=== PATIENT | male | born 1955 | race Caucasian/White ===

== ENCOUNTER 2019-01-11 09:19 | Day surgery (SDC) | payer OTHER ==
--- NOTE | 2019-01-10 12:34 | EKG ---
Test Date: 2019-01-10 Test Time: 10:24:50 Honing Machine Operator Semiautomatic: TEAGAN MEASUREMENT RESULTS: Intervals: Rate: 69 WA: 192 QRSD: 142 QT: 424 QTc: 454 [employer]: P: 31 WA: 192 QRS: 56 T: 37 INTERPRETIVE STATEMENTS: Normal sinus rhythm Nonspecific intraventricular block Cannot rule out Septal infarct, age undetermined Abnormal ECG No previous ECG available for comparison Electronically Signed On 01-10-19 12:33:42 CDT by Keith Wheat
[~2019-01-11 09:19] MED LIST: FENTANYL CITR 100 MCG/2 ML ONE; LIDOCAINE 1% W/EPI 1:100,000 MDV 20 ML VIAL ONE; LIDOCAINE 2% MPF 5 ML VIAL ONE; MIDAZOLAM HCL 2 MG/2 ML INJ ONE; PROPOFOL 200 MG/20 ML VIAL IV ONE; ROCURONIUM 50 MG/5 ML VIAL IV ONE
[2019-01-11] MEDS ORDERED: NA CHLORIDE 0.9% 1,000 ML ONE ×2 (09:22→10:54)
[2019-01-11] MEDS ORDERED: SUCCINYLCHOLINE 20 MG/ML (10 ML) IV ONE (10:00)
[2019-01-11] MEDS ORDERED: ROCURONIUM 50 MG/5 ML VIAL IV ONE (10:03)
[2019-01-11] MEDS ORDERED: MIDAZOLAM HCL 2 MG/2 ML INJ ONE (10:03)
[2019-01-11] MEDS ORDERED: FENTANYL CITR 100 MCG/2 ML ONE (10:03)
[2019-01-11] MEDS ORDERED: ONDANSETRON 4 MG/2 ML VIAL ONE (10:03)
[2019-01-11] MEDS ORDERED: LIDOCAINE 2% MPF 5 ML VIAL ONE (10:03)
[2019-01-11] MEDS ORDERED: NEOSTIGMINE 1 MG/ML -10 ML VIAL ONE (10:37)
[2019-01-11] MEDS ORDERED: NS 0.9% VIAL 20 ML ONE (10:37)
[2019-01-11] MEDS ORDERED: Mastisol Adhesive Liq ONE (10:45)
[2019-01-11] MEDS ORDERED: GLYCOPYRROLATE 0.2 MG/ML SYR ONE (10:54)
--- NOTE | 2019-01-11 11:07 | P.BOP ---
Preoperative diagnosis: right parotid mass Postoperative diagnosis: same Primary procedure: right partial parotidectomy wo nerve dissection Risk Management Internship: Lucia Antunez Estimated blood loss: <10ml Specimen: R parotid tail mass Findings: about 2cm cystic mass attached to inferior tail of parotid Anesthesia: General Complications: None Implants: none Fluids & blood products: 900ml Transferred to: Recovery Room Condition: Good
[2019-01-11 13:24] VITALS: BP 108/62; TEMP 97.8; O2SAT 94
--- NOTE | 2019-01-12 13:06 | OP ---
Surgeon: Krista Wright MD Preoperative Diagnosis: Right parotid mass. Postoperative Diagnosis: Right parotid mass. Procedure: Right partial parotidectomy without facial nerve dissection. Indication For Procedure: Nikunj Deras was referred to me for a right neck mass. He noted swelling over the right neck for at least 3 months. It was initially treated as acute parotitis and he did h ave foul-tasting drainage through Stensen duct with massage. However, the area of swelling did not r esolve. He underwent fine-needle aspiration, which demonstrated lymphocytes, scant neutrophils, and clusters of oval and spindle cells but overall was nondiagnostic. The patient noted that after fine- needle aspiration the mass completely deflated, but then filled back up again to baseline within a da y. CT of the neck was ordered based on nondiagnostic FNA. CT demonstrated a cystic appearing mass i n the lateral neck with difficulty determining if the mass is attached to the parotid or immediately adjacent as only axial images were available. The risks, benefits, and alternatives to the procedure were discussed with the patient who agreed to proceed. Description Of Procedure: The patient was brought to the operating room. He was placed under genera l anesthesia via oral endotracheal tube. The head of bed was turned approximately [address] exposure of the neck. The patient's head was turned to the left for exposure of the right neck. The area overlying the level of the neck and jawline were shaved using clippers. The mass was noted to be approximately a centimeter through palpation in the skin, slightly smaller than his clinic pre sentation 1 month ago. Due to uncertain diagnosis, the decision was made for a small incision with t he option for extension to a full parotidectomy incision as needed. The area was not injected in ord er to aid in the continued ability to palpate the mass. A 2 cm incision was made through the skin an d subcutaneous tissues. The platysma was divided and the soft tissues were carefully dissected using the [place]. The mass was identified. It was round and the inferior portion dissected easily from u nderlying tissues. The superior attachment point was difficult to appreciate and the incision was ex tended laterally and upward in a curvilinear fashion following a planned parotidectomy like incision. Full extension to the earlobe was not required. After marking the incision, a subplatysmal flap wa s elevated superiorly, inferiorly, and the lateral aspect of the parotid gland was identified. The m ass appeared to be connected to the inferior portion of the parotid. The LigaSure was used to divide the mass with a cuff of normal salivary tissue at the attachment point. The mass was removed and th e surgical bed was thoroughly irrigated. The greater auricular nerve was noted to be intact at the p osterior aspect of the wound bed due to a small degree of dissection. No drain was necessary. The i ncision was then closed in a layered fashion using 4-0 Vicryl and 5-0 fast-absorbing gut. Steri-Stri ps were then applied to the incision and the patient was returned to care of Anesthesia for awakening , extubation in the operating room, which proceeded without difficulty. Complications: None. Disposition: Patient will be discharged home later today and follow up with Dr. Wright in 3 days fo r evaluation of healing and evaluation for candidacy for return to work. CAL/PETRA Voice ID: [id number] Report ID: [id number]
== END 2019-01-11 12:24 | disposition home or self-care (01) ==
LOC: OR 09:19
PROVIDERS: ATTEND Otolaryngology
PROC: 0CB80ZZ Excision of Right Parotid Gland, Open Approach (ICD-10-PCS; principal; 2019-01-11 10:30)
DX: R22.1 Localized swelling, mass and lump, neck (principal); E11.9 Type 2 diabetes mellitus without complications; I10 Essential (primary) hypertension; H04.129 Dry eye syndrome of unspecified lacrimal gland; K21.9 Gastro-esophageal reflux disease without esophagitis; Z80.9 Family history of malignant neoplasm, unspecified
CPT/HCPCS: 93005; 36415; 82962 ×2; 88307; 42410; J2710; J0330; J2250; J3010; J7030 ×2; J2405; 88305; J2704

== ENCOUNTER 2023-04-05 06:23 | Day surgery (SDC) | payer OTHER ==
[2023-04-04 16:09] LABS: Potassium 4.3 mEq/L (3.5-5.1)
[2023-04-05] MEDS ORDERED: NA CHLORIDE 0.9% 1,000 ML ONE (06:40)
[2023-04-05] MEDS ORDERED: propofoL 200 MG/20 ML VIAL IV ONE (07:28)
[2023-04-05] MEDS ORDERED: LIDOCAINE 1% MPF 5 ML VIAL ONE (07:28)
[2023-04-05 10:17] VITALS: O2SAT 100
[2023-04-05 10:50] VITALS: BP 101/72; TEMP 97.8
--- NOTE | 2023-04-06 13:26 | EKG ---
Test Date: 2023-04-04 Test Time: 16:37:33 Aerial Photogrammetrist: RAY MEASUREMENT RESULTS: Intervals: Rate: 65 UT: 176 QRSD: 134 QT: 462 QTc: 480 [place]: P: 23 UT: 176 QRS: 113 T: 57 INTERPRETIVE STATEMENTS: Normal sinus rhythm Nonspecific intraventricular block Lateral infarct, age undetermined Abnormal ECG Compared to ECG 01/10/2019 10:24:50 No significant changes Electronically Signed On 04-06-23 13:22:16 TRANSFER AND PUMPHOUSE OPERATOR by Jose Alejandro Carbajal
--- NOTE | 2023-04-06 13:26 | EKG ---
Test Date: 2023-04-04 Test Time: 16:41:00 Fiber Locking Supervisor: RAY MEASUREMENT RESULTS: Intervals: Rate: 65 ME: 180 QRSD: 138 QT: 454 QTc: 472 [place]: P: 7 ME: 180 QRS: 63 T: 30 INTERPRETIVE STATEMENTS: Normal sinus rhythm Right bundle branch block Abnormal ECG Compared to ECG 04/04/2023 16:37:33 Right bundle-branch block now present Myocardial infarct finding no longer present Electronically Signed On 04-06-23 13:22:15 GUM ROLLING MACHINE OPERATOR by Jose Alejandro Carbajal
== END 2023-04-05 09:05 | disposition home or self-care (01) ==
LOC: OR 06:23
PROVIDERS: ATTEND Surgery
PROC: 0DBN8ZX Excision of Sigmoid Colon, Via Natural or Artificial Opening Endoscopic, Diagnostic (ICD-10-PCS; 2023-04-05)
PROC: 0DBP8ZX Excision of Rectum, Via Natural or Artificial Opening Endoscopic, Diagnostic (ICD-10-PCS; 2023-04-05)
PROC: 0DBC8ZX Excision of Ileocecal Valve, Via Natural or Artificial Opening Endoscopic, Diagnostic (ICD-10-PCS; principal; 2023-04-05 07:30)
DX: R19.5 Other fecal abnormalities (principal); E11.9 Type 2 diabetes mellitus without complications; E78.00 Pure hypercholesterolemia, unspecified; I10 Essential (primary) hypertension; K64.4 Residual hemorrhoidal skin tags; K64.8 Other hemorrhoids; K63.5 Polyp of colon
CPT/HCPCS: 93005 ×2; 80048; 36415; 82947; 88305; 45384; J2704; J2001; J7030